=== PATIENT | male | born 1960 | race Caucasian/White ===

== ENCOUNTER → 2016-11-07 | Outpatient (REF) | payer OTHER | LOC: M LAB REF 17:21 | PROVIDERS: ATTEND Nurse Practitioner Adult Health | DX: R20.8 Other disturbances of skin sensation (principal) ==

== ENCOUNTER 2017-08-13 06:39 | Day surgery (SDC) | payer OTHER ==
[2017-08-13] MEDS ORDERED: SIMETHICONE 40MG/0.6ML DROPS 30ML As Ordered (06:55)
[2017-08-13] MEDS ORDERED: PROPOFOL 200 MG/20 ML VIAL As Ordered ×2 (06:57→06:59)
[2017-08-13] MEDS ORDERED: LIDOCAINE 2% INJ 100 MG/5 ML SDV (FOR ANES.) As Ordered (06:57)
[2017-08-13] MEDS ORDERED: NS 1,000 ML IV (07:30)
== END 2017-08-13 08:39 | disposition home or self-care (01) ==
LOC: M OPP 06:39
DX: K64.0 First degree hemorrhoids (principal); D12.6 Benign neoplasm of colon, unspecified; R19.5 Other fecal abnormalities; F17.210 Nicotine dependence, cigarettes, uncomplicated; Z83.3 Family history of diabetes mellitus; Z86.79 Personal history of other diseases of the circulatory system
CPT/HCPCS: 45385

== ENCOUNTER → 2017-08-15 | Outpatient (REF) | payer OTHER ==
[2017-08-15 18:14] LABS: VITAMIN B12 LEVEL 1654 PG/ML (247-911)
== END ==
LOC: M LAB REF 16:31
DX: R20.8 Other disturbances of skin sensation (principal)

== ENCOUNTER → 2020-11-15 | Outpatient (REF) | payer OTHER ==
[~2020-11-15] MED LIST: B121000T PO
[2020-11-15 18:15] LABS: FOLATE 15.5 NG/ML
== END ==
LOC: M LAB REF 16:46
PROVIDERS: ATTEND Nurse Practitioner Adult Health
DX: G60.9 Hereditary and idiopathic neuropathy, unspecified (principal)

== ENCOUNTER → 2021-04-06 | Outpatient (CLI) | payer OTHER ==
[~2021-04-06] MED LIST changes: +D31000TA2 PO; +VITMTA PO
== END ==
LOC: M LABSMTC 10:13
PROVIDERS: ATTEND Anesthesiology
DX: Z01.812 Encounter for preprocedural laboratory examination (principal); Z20.822 Contact with and (suspected) exposure to COVID-19